=== PATIENT | female | born 1960 | race Hispanic/Latino ===

== ENCOUNTER 2017-03-05 08:51 | Outpatient (CLI) | payer OTHER ==
[2017-03-05] MEDS ORDERED: PROVENTIL IH ONE (09:11)
== END 2017-03-05 08:52 | disposition home or self-care (01) ==
LOC: PF 08:51
PROVIDERS: ATTEND Internal Medicine
DX: E11.9 Type 2 diabetes mellitus without complications (principal); J43.9 Emphysema, unspecified; J42 Unspecified chronic bronchitis; G56.00 Carpal tunnel syndrome, unspecified upper limb; F70 Mild intellectual disabilities; F17.200 Nicotine dependence, unspecified, uncomplicated
CPT/HCPCS: 94060

== ENCOUNTER 2018-01-20 17:06 | Emergency (ER) | payer SELFPAY ==
[2018-01-20 17:53] VITALS: BP 133/69
[2018-01-20] MEDS ORDERED: TYLENOL #3 PO ONE (19:06)
[2018-01-20] MEDS ORDERED: ZOFRAN ODT PO ONE (19:06)
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
== END 2018-01-20 20:11 | disposition home or self-care (01) ==
LOC: ED 17:06
DX: S16.1XXA Strain of muscle, fascia and tendon at neck level, initial encounter (principal); I10 Essential (primary) hypertension; E11.9 Type 2 diabetes mellitus without complications; J44.9 Chronic obstructive pulmonary disease, unspecified; F17.200 Nicotine dependence, unspecified, uncomplicated; Z90.710 Acquired absence of both cervix and uterus; Z79.82 Long term (current) use of aspirin; V89.2XXA Person injured in unspecified motor-vehicle accident, traffic, initial encounter; Y93.89 Activity, other specified; Y92.488 Other paved roadways as the place of occurrence of the external cause; Y99.8 Other external cause status
CPT/HCPCS: 72040; 99283; Q0162

== ENCOUNTER 2019-08-06 04:12 | Inpatient (IN) | payer OTHER, SELFPAY ==
--- NOTE | 2019-08-06 04:55 | XRay Report ---
CHEST 1 VIEW INDICATION / CLINICAL INFORMATION: Chest Pain. COMPARISON: 07/07/2018 FINDINGS: SUPPORT DEVICES: None. HEART / MEDIASTINUM: No significant abnormality. LUNGS / PLEURA: There is mild venous congestion.. No pneumothorax. ADDITIONAL FINDINGS: No significant additional findings. IMPRESSION: 1. There is mild venous congestion Signer Name: Sergei Delatorre MD Signed: 08/06/2019 4:50 AM Workstation Name: [id number]
[2019-08-06 05:34] LABS: Basophils # (Auto) 0.1 K/mm3 (0.0-0.1); Basophils % (Auto) 0.7 % (0.0-1.8); Eosinophils # (Auto) 0.2 K/mm3 (0.0-0.4); Eosinophils % (Auto) 1.2 % (0.0-4.3); Hematocrit 45.3 % (30.3-42.9); Lymphocytes # (Auto) 3.2 K/mm3 (1.2-5.4); Lymphocytes % (Auto) 24.4 % (13.4-35.0); Mean Corpuscular HGB Conc 33 % (30-34); Mean Corpuscular Volume 88 fl (79-97); Monocytes # (Auto) 0.8 K/mm3 (0.0-0.8); Monocytes % (Auto) 6.5 % (0.0-7.3); Platelet Count 315 K/mm3 (140-440); Red Blood Count 5.16 M/mm3 (3.65-5.03)
[2019-08-06 05:58] LABS: BUN/Creatinine Ratio 14; Blood Urea Nitrogen 13 mg/dL (7-17); Calcium 9.9 mg/dL (8.4-10.2); Hemolysis Index 4
[2019-08-06] MEDS ORDERED: FUROSEMIDE 40 MG/4 ML INJ IV ONE (06:30)
[2019-08-06] MEDS ORDERED: FAMOTIDINE 20 MG/2 ML INJ IV ONE (06:30)
[2019-08-06] MEDS ORDERED: ACETAMINOPHEN 325 MG TAB PO ONE (06:30)
--- NOTE | 2019-08-06 06:32 | Emergency Department Report ---
ED General Adult HPI - General Chief complaint: Chest Pain Stated complaint: CHEST PAIN Time Seen by Provider: 08/06/19 06:11 Source: patient, EMS ( EMS documentation not available at time of chart dictation ), RN notes reviewed, old records reviewed Mode of arrival: Stretcher Limitations: Physical Limitation - History of Present Illness Initial comments: During the entire history and physical examination, I am facility technician and escorted by nurse Rhianna Rosado The patient is a 58-year-old female. She is not known to myself previously. She has a history of congestive heart failure, EF of 10 to 15%, does not have a LifeVest, does not have ICD, also has a history of nonischemic cardiomyopathy, pulmonary hypertension, had cardiac catheterization last year, which showed normal coronary arteries. She also has a history of paroxysmal A. fib, and is supposed to be on systemic anticoagulation. Surgical history includes distant history of hysterectomy and cholecystectomy. The patient is not compliant with medications or systemic anticoagulation sec ondary to lack of insurance. She does not have a primary care doctor, nail technician or telecom engineer. She presents to the ER with a complaint of abdominal pain that moved to the chest, and possible syncope. All this started a couple hours ago. She reports onset of nontraumatic bilateral lower quadrant and suprapubic abdominal pain, possibly starting at 3:00 in the morning, that moved up to her subxiphoid region. She describes this pain as sharp, throbbing and aching. It increases with palpation and range of motion. It decreases with rest. She also reports that she went to urinate, and while urinating, she had an episode of loss of consciousness. At the moment, she does not have headache, neck pain, chest pain. She is having abdominal pain. She denies irritative and obstructive uri nary symptoms. She denies bright red blood per rectum and hematemesis. She denies focal extremity weakness and/or numbness. -: Gradual, hour(s) Location: abdomen Radiation: other (chest) Severity scale (0 -10): 10 Quality: other Consistency: other Improves with: other Worsens with: other - Related Data Home Medications Medication Instructions Recorded Confirmed Last Taken metFORMIN 1,000 mg PO BID 08/06/19 08/06/19 Unknown Previous Rx's Medication Instructions Recorded Last Taken Type Apixaban [Eliquis] 2 tab PO Q12HR #26 tablet 07/11/18 Unknown Rx Apixaban [Eliquis] 5 mg PO BID #42 tab.ds.pk 07/11/18 Unknown Rx Aspirin EC [Halfprin EC] 81 mg PO QDAY #30 tablet 07/11/18 Unknown Rx Furosemide [Lasix TAB] 40 mg PO DAILY #30 tablet 07/11/18 Unknown Rx Nicotine [Habitrol] 21 mg TD DAILY #30 patch 07/11/18 Unknown Rx Spironolactone [Aldactone] 25 mg PO QDAY #30 tablet 07/11/18 Unknown Rx carvediloL [Coreg] 12.5 mg PO BID #60 tablet 07/11/18 Unknown Rx glipiZIDE [Glucotrol] 5 mg PO BIDDIAB #60 tablet 07/11/18 Unknown Rx lisinopriL [Zestril TAB] 5 mg PO QDAY #30 tablet 07/11/18 Unknown Rx Allergies Allergy/AdvReac Type Severity Reaction Status Date / Time No Known Allergies Allergy Unverified 01/20/18 17:49 ED Review of Systems ROS: Stated complaint: CHEST PAIN Other details as noted in HPI Constitutional: malaise, weakness. denies: fever Eyes: denies: eye discharge ENT: congestion Respiratory: shortness of breath, wheezing Cardiovascular: chest pain, syncope Gastrointestinal: abdominal pain Genitourinary: denies: dysuria Musculoskeletal: myalgia, other (Chronic right-sided knee pain) Neurological: denies: weakness, numbness, paresthesias Psychiatric: anxiety Hematological/Lymphatic: denies: easy bleeding ED Past Medical Hx - Past Medical History Previous Medical History?: Yes Hx Hypertension: Yes Hx Diabetes: Yes Hx COPD: Yes Additional medical history: EMPHYSEMA - Surgical History Past Surgical History?: Yes Hx Cholecystectomy: Yes Additional Surgical History: HYSTERECTOMY - Social History Smoking Status: Heavy Tobacco Smoker Substance Use Type: None - Medications Home Medications: Home Medications Medication Instructions Recorded Confirmed Last Taken Type Apixaban [Eliquis] 2 tab PO Q12HR #26 tablet 07/11/18 08/06/19 Unknown Rx Apixaban [Eliquis] 5 mg PO BID #42 tab.ds.pk 07/11/18 08/06/19 Unknown Rx Aspirin EC [Halfprin EC] 81 mg PO QDAY #30 tablet 01/25/19 02/20/20 Unknown Rx Furosemide [Lasix TAB] 40 mg PO DAILY #30 tablet 07/11/18 08/06/19 Unknown Rx Nicotine [Habitrol] 21 mg TD DAILY #30 patch 07/11/18 08/06/19 Unknown Rx Spironolactone [Aldactone] 25 mg PO QDAY #30 tablet 07/11/18 08/06/19 Unknown Rx carvediloL [Coreg] 12.5 mg PO BID #60 tablet 07/11/18 08/06/19 Unknown Rx glipiZIDE [Glucotrol] 5 mg PO BIDDIAB #60 tablet 07/11/18 08/06/19 Unknown Rx lisinopriL [Zestril TAB] 5 mg PO QDAY #30 tablet 07/11/18 08/06/19 Unknown Rx metFORMIN 1,000 mg PO BID 08/06/19 08/06/19 Unknown History ED Physical Exam - General Limitations: Physical Limitation General appearance: alert, anxious, in distress, obese - Head Head exam: Present: atraumatic, normocephalic - Eye Eye exam: Present: normal appearance, EOMI, other (Visual acuity intact to fi nger counting and color perception at a close distance). Absent: nystagmus - ENT ENT exam: Present: normal exam, normal orophraynx, mucous membranes moist, norm al external ear exam - Neck Neck exam: Present: normal inspection, full ROM. Absent: tenderness, meningismus - Respiratory Respiratory exam: Present: respiratory distress, rales, rhonchi - Cardiovascular Cardiovascular Exam: Present: normal rhythm, tachycardia, normal heart sounds. Absent: systolic murmur, diastolic murmur, rubs, gallop - GI/Abdominal GI/Abdominal exam: Present: soft, tenderness, other (Suprapubic and bilateral lower quadrant tenderness. There is a positive left-sided Rovsing sign. There is right lower quadrant tenderness with deep palpation. There is no right upper quadrant tenderness). Absent: distended, guarding, rebound, rigid, pulsatile mass - Extremities Exam Extremities exam: Present: normal inspection, full ROM, other (2+ pulses noted in the bilateral upper and lower extremities. There is no palpable cord. negative Homans sign. Muscular compartments are soft. The pelvis is stable.). Absent: calf tenderness - Back Exam Back exam: Present: normal inspection. Absent: tenderness, CVA tenderness (R), CVA tenderness (L), paraspinal tenderness, vertebral tenderness - Neurological Exam Neurological exam: Present: alert, other (There is no facial droop. The tongue is midline. Extraocular movements are intact bilaterally. There is 5 out of 5 strength in bilateral upper and lower extremities. Sensation is intact to light touch bilateral upper and lower extremities. There is no past-pointing. There is no pronator drift. There is normal [id number]. ). Absent: motor sensory deficit - Psychiatric Psychiatric exam: Present: anxious - Skin Skin exam: Present: warm, dry, intact, normal color. Absent: rash ED Course Vital Signs 08/06/19 08/06/19 08/06/19 04:19 04:30 05:31 Temperature 97.8 F Pulse Rate 72 73 90 Respiratory 19 19 19 Rate Blood Pressure 119/36 106/47 132/59 Blood Pressure 106/47 [Right] O2 Sat by Pulse 93 93 99 Oximetry 08/06/19 08/06/19 05:45 06:00 Temperature Pulse Rate 89 89 Respiratory 19 20 Rate Blood Pressure 132/59 134/62 Blood Pressure [Right] O2 Sat by Pulse 96 96 Oximetry - Reevaluation(s) Reevaluation #1: 08/06/19 07:19 Differential diagnosis, including but not limited to: AAA, colitis, renal colic, appendicitis, orthostasis, vagal event, structural cardiac disease, arrhythmia, electrolyte derangement, pneumonia, pulmonary embolism, congestive heart failure, intracranial injury Assessment and plan: 58-year-old female with complex past medical history, noncompliance secondary to insurance issues, presenting with abdominal pain that radiates to the chest, and syncope after urination. Complaints #1, abdominal pain that radiates to the chest obtain CT scan of the abdomen pelvis, urinalysis, and treat her pain. Has equal pulses in the upper and lower extremities, x-ray the chest is reviewed and appreciated, this is very unlikely to be an aortic dissection, however, AAA is on the differential diagnosis. Reassess after the CAT scan has resulted. Complaints #2, chest pain: Has ejection fraction 10 to 15%, does not have ICD, does not have LifeVest, has objective evidence of fluid overload, manifested by physical exam, hypoxia, and ABG showing hypoxemic respiratory failure. Start the patient on supplemental oxygen, start Lasix therapy, obtain CT scan of the chest. Moderate risk for major adverse cardiac event, we will admit to the medical service once initial diagnostics have resulted. Complaints #3, syncope: Likely secondary to multifactorial etiology, including hypoxemic respiratory failure, congestive heart failure, screen for electrolyte derangement, place patient on cardiac tech, replace electrolytes as needed, anticipate cardiology consultation once initial diagnostics have resulted. GCS of 15, cervical spine is cleared through the Nexus and Wilkinson C-spine rule, however, we will obtain CT scan of the brain to assess for intracranial injury. Reevaluation #2: 08/06/19 08:54 no additional episodes of syncope noted. Patient to be admitted to the medical service for high risk chest pain, syncope, first-degree AV block, hypomagn esemia, and acute hypoxemic respiratory failure. Reevaluation #3: 08/06/19 09:25 Dr Mary Bailey to admit ED Medical Decision Making - Lab Data Result diagrams: 08/06/19 05:00 08/06/19 05:00 Vital Signs 08/06/19 08/06/19 08/06/19 04:19 04:30 05:31 Temperature 97.8 F Pulse Rate 72 73 90 Respiratory 19 19 19 Rate Blood Pressure 119/36 106/47 132/59 Blood Pressure 106/47 [Right] O2 Sat by Pulse 93 93 99 Oximetry 08/06/19 08/06/19 05:45 06:00 Temperature Pulse Rate 89 89 Respiratory 19 20 Rate Blood Pressure 132/59 134/62 Blood Pressure [Right] O2 Sat by Pulse 96 96 Oximetry Lab Results 08/06/19 08/06/19 Range/Units 05:00 05:00 WBC 13.0 H (4.5-11.0) K/mm3 RBC 5.16 H (3.65-5.03) M/mm3 Hgb 15.0 H (10.1-14.3) gm/dl Hct 45.3 H (30.3-42.9) % MCV 88 (79-97) fl MCH 29 (28-32) pg MCHC 33 (30-34) % RDW 14.0 (13.2-15.2) % Plt Count 315 (140-440) K/mm3 Lymph % (Auto) 24.4 (13.4-35.0) % [place] % (Auto) 6.5 (0.0-7.3) % Eos % (Auto) 1.2 (0.0-4.3) % Baso % (Auto) 0.7 (0.0-1.8) % Lymph # 3.2 (1.2-5.4) K/mm3 [place] # 0.8 (0.0-0.8) K/mm3 Eos # 0.2 (0.0-0.4) K/mm3 Baso # 0.1 (0.0-0.1) K/mm3 Seg Neutrophils % 67.2 (40.0-70.0) % Seg Neutrophils # 8.7 H (1.8-7.7) K/mm3 Sodium 143 (137-145) mmol/L Potassium 4.3 (3.6-5.0) mmol/L Chloride 97.9 L (98-107) mmol/L Carbon Dioxide 29 (22-30) mmol/L Anion Gap 20 mmol/L BUN 13 (7-17) mg/dL Creatinine 0.9 (0.7-1.2) mg/dL Estimated GFR > 60 ml/min BUN/Creatinine Ratio 14 % Glucose 218 H (65-100) mg/dL Calcium 9.9 (8.4-10.2) mg/dL Troponin T < 0.010 (0.00-0.029) ng/mL Vital Signs 08/06/19 08/06/19 08/06/19 04:19 04:30 05:31 Temperature 97.8 F Pulse Rate 72 73 90 Respiratory 19 19 19 Rate Blood Pressure 119/36 106/47 132/59 Blood Pressure 106/47 [Right] O2 Sat by Pulse 93 93 99 Oximetry 08/06/19 08/06/19 05:45 06:00 Temperature Pulse Rate 89 89 Respiratory 19 20 Rate Blood Pressure 132/59 134/62 Blood Pressure [Right] O2 Sat by Pulse 96 96 Oximetry Lab Results 08/06/19 08/06/19 08/06/19 Range/Units 05:00 05:00 06:45 WBC 13.0 H (4.5-11.0) K/mm3 RBC 5.16 H (3.65-5.03) M/mm3 Hgb 15.0 H (10.1-14.3) gm/dl Hct 45.3 H (30.3-42.9) % MCV 88 (79-97) fl MCH 29 (28-32) pg MCHC 33 (30-34) % RDW 14.0 (13.2-15.2) % Plt Count 315 (140-440) K/mm3 Lymph % (Auto) 24.4 (13.4-35.0) % [place] % (Auto) 6.5 (0.0-7.3) % Eos % (Auto) 1.2 (0.0-4.3) % Baso % (Auto) 0.7 (0.0-1.8) % Lymph # 3.2 (1.2-5.4) K/mm3 [place] # 0.8 (0.0-0.8) K/mm3 Eos # 0.2 (0.0-0.4) K/mm3 Baso # 0.1 (0.0-0.1) K/mm3 Seg Neutrophils % 67.2 (40.0-70.0) % Seg Neutrophils # 8.7 H (1.8-7.7) K/mm3 PT (12.2-14.9) Sec. INR (0.87-1.13) APTT (24.2-36.6) Sec. D-Dimer (0-234) ng/mlDDU ABG pH 7.326 L (7.350-7.450) pH Units ABG pCO2 50.7 mm Hg ABG pO2 60.1 L (80.0-90.0) mm Hg ABG HCO3 25.9 (20.0-26.0) mmol/L ABG O2 Saturation 91.4 L (95.0-99.0) % ABG O2 Content 17.7 (0.0-44) ABG Base Excess -0.8 (-2.0-3.0) mmol/L ABG Hemoglobin 14.8 (12.0-16.0) gm/dl ABG Carboxyhemoglobin 6.5 H (0.0-5.0) % ABG Methemoglobin 0.5 (0.0-1.5) % Oxyhemoglobin 85.0 L (95.0-99.0) % FiO2 21 % Sodium 143 (137-145) mmol/L Potassium 4.3 (3.6-5.0) mmol/L Chloride 97.9 L (98-107) mmol/L Carbon Dioxide 29 (22-30) mmol/L Anion Gap 20 mmol/L BUN 13 (7-17) mg/dL Creatinine 0.9 (0.7-1.2) mg/dL Estimated GFR > 60 ml/min BUN/Creatinine Ratio 14 % Glucose 218 H (65-100) mg/dL Calcium 9.9 (8.4-10.2) mg/dL Magnesium (1.7-2.3) mg/dL Troponin T < 0.010 (0.00-0.029) ng/mL NT-Pro-B Natriuret Pep (0-900) pg/mL TSH (0.270-4.200) mlU/mL Urine Color (Yellow) Urine Turbidity (Clear) Urine pH (5.0-7.0) Ur Specific [place] (1.003-1.030) Urine Protein (Negative) mg/dL Urine Glucose (UA) (Negative) mg/dL Urine Ketones (Negative) mg/dL Urine Blood (Negative) Urine Nitrite (Negative) Urine Bilirubin (Negative) Urine Urobilinogen (<2.0) mg/dL Ur Leukocyte Esterase (Negative) Urine WBC (Auto) (0.0-6.0) /HPF Urine RBC (Auto) (0.0-6.0) /HPF U Epithel Cells (Auto) (0-13.0) /HPF Hyaline Casts /LPF Urine Mucus /HPF Salicylates (2.8-20.0) mg/dL Acetaminophen (10.0-30.0) ug/mL Plasma/Serum Alcohol (0-0.07) % 08/06/19 08/06/19 08/06/19 Range/Units 06:53 06:53 06:53 WBC (4.5-11.0) K/mm3 RBC (3.65-5.03) M/mm3 Hgb (10.1-14.3) gm/dl Hct (30.3-42.9) % MCV (79-97) fl MCH (28-32) pg MCHC (30-34) % RDW (13.2-15.2) % Plt Count (140-440) K/mm3 Lymph % (Auto) (13.4-35.0) % [place] % (Auto) (0.0-7.3) % Eos % (Auto) (0.0-4.3) % Baso % (Auto) (0.0-1.8) % Lymph # (1.2-5.4) K/mm3 [place] # (0.0-0.8) K/mm3 Eos # (0.0-0.4) K/mm3 Baso # (0.0-0.1) K/mm3 Seg Neutrophils % (40.0-70.0) % Seg Neutrophils # (1.8-7.7) K/mm3 PT 13.5 (12.2-14.9) Sec. INR 1.02 (0.87-1.13) APTT 28.5 (24.2-36.6) Sec. D-Dimer < 135.00 (0-234) ng/mlDDU ABG pH (7.350-7.450) pH Units ABG pCO2 mm Hg ABG pO2 (80.0-90.0) mm Hg ABG HCO3 (20.0-26.0) mmol/L ABG O2 Saturation (95.0-99.0) % ABG O2 Content (0.0-44) ABG Base Excess (-2.0-3.0) mmol/L ABG Hemoglobin (12.0-16.0) gm/dl ABG Carboxyhemoglobin (0.0-5.0) % ABG Methemoglobin (0.0-1.5) % Oxyhemoglobin (95.0-99.0) % FiO2 % Sodium (137-145) mmol/L Potassium (3.6-5.0) mmol/L Chloride (98-107) mmol/L Carbon Dioxide (22-30) mmol/L Anion Gap mmol/L BUN (7-17) mg/dL Creatinine (0.7-1.2) mg/dL Estimated GFR ml/min BUN/Creatinine Ratio % Glucose (65-100) mg/dL Calcium (8.4-10.2) mg/dL Magnesium 1.60 L (1.7-2.3) mg/dL Troponin T (0.00-0.029) ng/mL NT-Pro-B Natriuret Pep 427.0 (0-900) pg/mL TSH 4.840 H (0.270-4.200) mlU/mL Urine Color (Yellow) Urine Turbidity (Clear) Urine pH (5.0-7.0) Ur Specific [place] (1.003-1.030) Urine Protein (Negative) mg/dL Urine Glucose (UA) (Negative) mg/dL Urine Ketones (Negative) mg/dL Urine Blood (Negative) Urine Nitrite (Negative) Urine Bilirubin (Negative) Urine Urobilinogen (<2.0) mg/dL Ur Leukocyte Esterase (Negative) Urine WBC (Auto) (0.0-6.0) /HPF Urine RBC (Auto) (0.0-6.0) /HPF U Epithel Cells (Auto) (0-13.0) /HPF Hyaline Casts /LPF Urine Mucus /HPF Salicylates (2.8-20.0) mg/dL Acetaminophen (10.0-30.0) ug/mL Plasma/Serum Alcohol (0-0.07) % 08/06/19 08/06/19 08/06/19 Range/Units 06:53 06:53 06:53 WBC (4.5-11.0) K/mm3 RBC (3.65-5.03) M/mm3 Hgb (10.1-14.3) gm/dl Hct (30.3-42.9) % MCV (79-97) fl MCH (28-32) pg MCHC (30-34) % RDW (13.2-15.2) % Plt Count (140-440) K/mm3 Lymph % (Auto) (13.4-35.0) % [place] % (Auto) (0.0-7.3) % Eos % (Auto) (0.0-4.3) % Baso % (Auto) (0.0-1.8) % Lymph # (1.2-5.4) K/mm3 [place] # (0.0-0.8) K/mm3 Eos # (0.0-0.4) K/mm3 Baso # (0.0-0.1) K/mm3 Seg Neutrophils % (40.0-70.0) % Seg Neutrophils # (1.8-7.7) K/mm3 PT (12.2-14.9) Sec. INR (0.87-1.13) APTT (24.2-36.6) Sec. D-Dimer (0-234) ng/mlDDU ABG pH (7.350-7.450) pH Units ABG pCO2 mm Hg ABG pO2 (80.0-90.0) mm Hg ABG HCO3 (20.0-26.0) mmol/L ABG O2 Saturation (95.0-99.0) % ABG O2 Content (0.0-44) ABG Base Excess (-2.0-3.0) mmol/L ABG Hemoglobin (12.0-16.0) gm/dl ABG Carboxyhemoglobin (0.0-5.0) % ABG Methemoglobin (0.0-1.5) % Oxyhemoglobin (95.0-99.0) % FiO2 % Sodium (137-145) mmol/L Potassium (3.6-5.0) mmol/L Chloride (98-107) mmol/L Carbon Dioxide (22-30) mmol/L Anion Gap mmol/L BUN (7-17) mg/dL Creatinine (0.7-1.2) mg/dL Estimated GFR ml/min BUN/Creatinine Ratio % Glucose (65-100) mg/dL Calcium (8.4-10.2) mg/dL Magnesium (1.7-2.3) mg/dL Troponin T (0.00-0.029) ng/mL NT-Pro-B Natriuret Pep (0-900) pg/mL TSH (0.270-4.200) mlU/mL Urine Color (Yellow) Urine Turbidity (Clear) Urine pH (5.0-7.0) Ur Specific [place] (1.003-1.030) Urine Protein (Negative) mg/dL Urine Glucose (UA) (Negative) mg/dL Urine Ketones (Negative) mg/dL Urine Blood (Negative) Urine Nitrite (Negative) Urine Bilirubin (Negative) Urine Urobilinogen (<2.0) mg/dL Ur Leukocyte Esterase (Negative) Urine WBC (Auto) (0.0-6.0) /HPF Urine RBC (Auto) (0.0-6.0) /HPF U Epithel Cells (Auto) (0-13.0) /HPF Hyaline Casts /LPF Urine Mucus /HPF Salicylates 0.5 L (2.8-20.0) mg/dL Acetaminophen < 5.0 L (10.0-30.0) ug/mL Plasma/Serum Alcohol < 0.01 (0-0.07) % 08/06/19 Range/Units Unknown WBC (4.5-11.0) K/mm3 RBC (3.65-5.03) M/mm3 Hgb (10.1-14.3) gm/dl Hct (30.3-42.9) % MCV (79-97) fl MCH (28-32) pg MCHC (30-34) % RDW (13.2-15.2) % Plt Count (140-440) K/mm3 Lymph % (Auto) (13.4-35.0) % [place] % (Auto) (0.0-7.3) % Eos % (Auto) (0.0-4.3) % Baso % (Auto) (0.0-1.8) % Lymph # (1.2-5.4) K/mm3 [place] # (0.0-0.8) K/mm3 Eos # (0.0-0.4) K/mm3 Baso # (0.0-0.1) K/mm3 Seg Neutrophils % (40.0-70.0) % Seg Neutrophils # (1.8-7.7) K/mm3 PT (12.2-14.9) Sec. INR (0.87-1.13) APTT (24.2-36.6) Sec. D-Dimer (0-234) ng/mlDDU ABG pH (7.350-7.450) pH Units ABG pCO2 mm Hg ABG pO2 (80.0-90.0) mm Hg ABG HCO3 (20.0-26.0) mmol/L ABG O2 Saturation (95.0-99.0) % ABG O2 Content (0.0-44) ABG Base Excess (-2.0-3.0) mmol/L ABG Hemoglobin (12.0-16.0) gm/dl ABG Carboxyhemoglobin (0.0-5.0) % ABG Methemoglobin (0.0-1.5) % Oxyhemoglobin (95.0-99.0) % FiO2 % Sodium (137-145) mmol/L Potassium (3.6-5.0) mmol/L Chloride (98-107) mmol/L Carbon Dioxide (22-30) mmol/L Anion Gap mmol/L BUN (7-17) mg/dL Creatinine (0.7-1.2) mg/dL Estimated GFR ml/min BUN/Creatinine Ratio % Glucose (65-100) mg/dL Calcium (8.4-10.2) mg/dL Magnesium (1.7-2.3) mg/dL Troponin T (0.00-0.029) ng/mL NT-Pro-B Natriuret Pep (0-900) pg/mL TSH (0.270-4.200) mlU/mL Urine Color Yellow (Yellow) Urine Turbidity Clear (Clear) Urine pH 5.0 (5.0-7.0) Ur Specific [place] 1.017 (1.003-1.030) Urine Protein 30 mg/dl (Negative) mg/dL Urine Glucose (UA) Neg (Negative) mg/dL Urine Ketones Neg (Negative) mg/dL Urine Blood Neg (Negative) Urine Nitrite Neg (Negative) Urine Bilirubin Neg (Negative) Urine Urobilinogen < 2.0 (<2.0) mg/dL Ur Leukocyte Esterase Neg (Negative) Urine WBC (Auto) 1.0 (0.0-6.0) /HPF Urine RBC (Auto) 2.0 (0.0-6.0) /HPF U Epithel Cells (Auto) 2.0 (0-13.0) /HPF Hyaline Casts 4 /LPF Urine Mucus Few /HPF Salicylates (2.8-20.0) mg/dL Acetaminophen (10.0-30.0) ug/mL Plasma/Serum Alcohol (0-0.07) % - EKG Data -: EKG Interpreted by Ct EKG shows normal: sinus rhythm Rate: normal - EKG Data 08/06/19 07:22 Sinus rhythm, 75 bpm, first-degree AV block, QTC is prolonged, there is a borderline rightward axis deviation, there are PVCs. There is an interventricular conduction delay. The EKG is markedly abnormal. Nonspecific changes when compared to prior, including worsened first-degree AV block, more pronounced interventricular conduction delay, new onset PVCs. - Radiology Data Radiology results: report reviewed, image reviewed Print Report Referring Physician: ED DOC Patient Name: DEXTER YOST Date of : 1960 Sex: Female Report Date: 2019-08-06 Report Status: Finalized Findings [facility] [address] [place] [address] XRa y Report Signed Patient: DEXTER YOST MR#: [id number] : 1960 Acct:[id number] Age/Sex: 58 / F ADM Date: 08/06/19 Loc: ED Attending Dr: Ordering Physician: ED MD NATE Date of Service: 08/06/19 Procedure(s): XR chest 1V ap Accession Number(s): [id number] cc: ED DOCMD Fluoro Time In Minutes: CHEST 1 VIEW INDICATION / CLINICAL INFORMATION: Chest Pain. COMPARISON: 07/07/2018 FINDINGS: SUPPORT DEVICES: None. HEART / MEDIASTINUM: No significant abnormality. LUNGS / PLEURA: There is mild venous congestion.. No pneumothorax. ADDITIONAL FINDINGS: No significant additional findings. IMPRESSION: 1. There is mild venous congestion Signer Name: Sergei Delatorre MD Signed: 08/06/2019 4:50 AM Workstation Name: [id number] Transcribed By: SS Dictated By: Sergei Delatorre MD Electronically Authenticated By: Sergei Delatorre MD Signed Date/Time: 08/06/19449 DD/ 9 TD/TT: Noncontrast CT scan of the brain negative for acute disease. CT scan of the abdomen pelvis is negative for acute disease Critical Care Time: Yes Critical care time in (mins) excluding proc time.: 35 Critical care attestation.: If time is entered above; I have spent that time in minutes in the direct care of this critically ill patient, excluding procedure time. ED Disposition Clinical Impression: Acute respiratory failure with hypoxemia, First degree AV block, Acute abdominal pain, Acute chest pain, Syncope, Hypomagnesemia Disposition: 09 OP ADMIT IP TO THIS HOSP Is pt being admited?: Yes Does the pt Need Aspirin: Yes Condition: Stable Instructions: Chest Pain (ED), Syncope (ED) Referrals: PRIMARY CARE, [Primary Care Provider] - 3-5 Days
[2019-08-06 07:05] LABS: ABG Base Excess -0.8 mmol/L (-2.0-3.0); ABG HCO3 25.9 mmol/L (20.0-26.0); ABG Methemoglobin 0.5 % (0.0-1.5); ABG Oxygen Saturation 91.4 % (95.0-99.0); ABG PCO2 50.7 mm Hg; ABG PH 7.326 pH Units (7.350-7.450); ABG PO2 60.1 mm Hg (80.0-90.0)
[2019-08-06 07:15] LABS: INR 1.02 (0.87-1.13)
[2019-08-06 07:16] LABS: Partial Thromboplastin Time 28.5 Sec. (24.2-36.6)
[2019-08-06] MEDS ORDERED: MAGNESIUM SULFATE 2 GM/50 ML BAG IV ONE (07:23)
[2019-08-06 07:53] LABS: Bilirubin,Urine NEG (Negative); Blood,Urine NEG (Negative); Color,Urine Yellow (Yellow); Hyaline Casts,Urine 4 /LPF; Mucus,Urine FEW /HPF; Urobilinogen,Urine < 2.0 mg/dL (<2.0)
--- NOTE | 2019-08-06 08:36 | Cat Scan Report ---
CT HEAD WITHOUT CONTRAST INDICATION / CLINICAL INFORMATION: syncope uncertain if head trauma. TECHNIQUE: Axial imaging performed from the skull apex through the skull base without the use of cont rast. Sagittal and coronal reformatted images. All CT scans at this location are performed using CT dose reduction for ALARA by means of automated exposure control. COMPARISON: None available. FINDINGS: CEREBRAL PARENCHYMA: No significant abnormality. No acute territorial infarct. HEMORRHAGE: None. EXTRA-AXIAL SPACES: Normal in size and morphology for the patient's age. VENTRICULAR SYSTEM: Normal in size and morphology for the patient's age. MIDLINE SHIFT OR HERNIATION: None. CEREBELLUM / BRAINSTEM: No significant abnormality. CALVARIUM: No significant abnormality. ORBITS: Normal as visualized. PARANASAL SINUSES / MASTOID AIR CELLS: Normal as visualized. SOFT TISSUES of HEAD: No significant abnormality. ADDITIONAL FINDINGS: None. IMPRESSION: Normal CT head Signer Name: Manjit Tierney Jr, MD Signed: 08/06/2019 8:32 AM Workstation Name: [id number]
--- NOTE | 2019-08-06 08:47 | Cat Scan Report ---
CT ABDOMEN AND PELVIS WITH CONTRAST HISTORY: Abdominal pain radiating to the chest. COMPARISON: No available relevant comparison imaging . TECHNIQUE: Routine abdominal and pelvic CT exam performed following intravenous contrast administrat ion.. All CT scans at this location are performed using CT dose reduction for ALARA by means of autom ated exposure control. FINDINGS: CT ABDOMEN: Lung Bases: No significant abnormality. Liver: No significant abnormality. Biliary: Normal bile ducts status post cholecystectomy. Spleen: No significant abnormality. Unenlarged. Pancreas: No significant abnormality. Adrenals: No significant abnormality. Kidneys: No significant abnormality. The renal collecting systems and ureters are nondilated. No urin tera calculus. Lymphatics: No lymphadenopathy. Vasculature: The aorta and iliac arteries are relatively small and heavily calcified. Bowel/Peritoneum: Nonobstructive bowel pattern. Diverticulosis without mesocolonic fat stranding. No free air. No free fluid. Normal appendix. Additional Findings: A 1.3 cm wide supraumbilical abdominal wall defect with a small fat-containing h ernia. No inflammatory stranding within the herniated fat. No bowel extends into the hernia. The defe ct is approximately 1.5 cm superior to the umbilicus. CT PELVIC: : Status post hysterectomy and right salpingo-oophorectomy. Normal left ovary. No adnexal mass or f ree fluid. Lymphatics: No lymphadenopathy. Osseous Structures: No aggressive appearing osseous lesions. Additional Findings: None IMPRESSION: 1. A small fat-containing supraumbilical hernia. 2. Diverticulosis involving the transverse and descending colon but no signs of diverticulitis. 3. Status post cholecystectomy. 4. Status post hysterectomy and right salpingo-oophorectomy. Signer Name: Chaparro Saenz MD Signed: 08/06/2019 8:43 AM Workstation Name: [id number]
[2019-08-06] MEDS ORDERED: ASPIRIN 81 MG TAB CHEW PO ONE (08:56)
[2019-08-06] MEDS ORDERED: ASPIRIN 325 MG TAB ONE (10:10)
--- NOTE | 2019-08-06 11:17 | History and Physical Report ---
History of Present Illness Date of examination: 08/06/19 Date of admission: 08/06/19 09:47 History of present illness: The patient is a 58-year-old female has a history of congestive heart failure, EF of 10 to 15%, does not have a LifeVest, does not have ICD, also has a history of nonischemic cardiomyopathy, pulmonary hypertension, had cardiac catheterization last year, which showed normal coronary arteries. She also has a history of paroxysmal A. fib, and is supposed to be on systemic a nticoagulation. Surgical history includes distant history of hysterectomy and cholecystectomy. The patient is not compliant with medications or systemic anticoagulation secondary to lack of insurance. 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 She presents to the ER with a complaint of abdominal pain that moved to the chest, and possible syncope. All this started a couple hours ago. She reports onset of nontraumatic bilateral lower quadrant and suprapubic abdominal pain, possibly starting at 3:00 in the morning, that moved up to her subxiphoid region. She describes this pain as sharp, throbbing and aching. It increases with palpation and range of motion. It decreases with rest. She also reports that she went to urinate, and while urinating, she had an episode of loss of consciousness. At the moment, she does not have headache, neck pain, chest pain. She is having abdominal pain. She denies irritative and obstructive urinary symptoms. She denies bright red blood per rectum and hematemesis. She denies focal extremity weakness and/or numbness. Past History Past Medical History: heart failure, hypertension, hyperlipidemia, other (atrial fib) Past Surgical History: cholecystectomy, hysterectomy, Other (Tubal ligation) Social history: smoking Family history: hypertension Medications and Allergies Allergies Allergy/AdvReac Type Severity Reaction Status Date / Time No Known Allergies Allergy Unverified 01/20/18 17:49 Home Medications Medication Instructions Recorded Confirmed Last Taken Type Apixaban [Eliquis] 2 tab PO Q12HR #26 tablet 07/11/18 08/06/19 Unknown Rx Apixaban [Eliquis] 5 mg PO BID #42 tab.ds.pk 07/11/18 08/06/19 Unknown Rx Aspirin EC [Halfprin EC] 81 mg PO QDAY #30 tablet 07/11/18 08/06/19 Unknown Rx Furosemide [Lasix TAB] 40 mg PO DAILY #30 tablet 07/11/18 08/06/19 Unknown Rx Nicotine [Habitrol] 21 mg TD DAILY #30 patch 07/11/18 08/06/19 Unknown Rx Spironolactone [Aldactone] 25 mg PO QDAY #30 tablet 07/11/18 08/06/19 Unknown Rx carvediloL [Coreg] 12.5 mg PO BID #60 tablet 07/11/18 08/06/19 Unknown Rx glipiZIDE [Glucotrol] 5 mg PO BIDDIAB #60 tablet 07/11/18 08/06/19 Unknown Rx lisinopriL [Zestril TAB] 5 mg PO QDAY #30 tablet 07/11/18 08/06/19 Unknown Rx metFORMIN 1,000 mg PO BID 08/06/19 08/06/19 Unknown History Exam - Physical Exam Narrative exam: GENERAL: well-developed and well-nourished lying on bed appeared to be in no discomfort. HEENT: Normocephalic. Atraumatic. No conjunctival congestion or icterus. Patient has moist mucous membranes. NECK: Supple. Trachea midline. CHEST/LUNGS: Clear to auscultated bilaterally, breathing nonlabored. No wheezes crackles or rhonchi. HEART/CARDIOVASCULAR: Regular in rate and rhythm. S1 and S2 positive. ABDOMEN: Abdomen is soft, nontender. Patient has normal bowel sounds. SKIN: There is no rash. Warm and dry. NEURO: No focal motor deficit. Follows command. MUSCULOSKELETAL: No joint effusion or tenderness. EXTRIMITY: No edema, no cyanosis or clubbing. PSYCH: Cooperative. - Constitutional Vitals: Temp Pulse Resp BP Pulse Ox 97.8 F 89 20 134/62 96 08/06/19 04:19 08/06/19 06:00 08/06/19 06:00 08/06/19 06:00 08/06/19 06:00 Results - Labs CBC & Chem 7: 08/06/19 05:00 08/06/19 05:00 Labs: Abnormal lab results 08/06/19 08/06/19 08/06/19 Range/Units 05:00 05:00 06:45 WBC 13.0 H (4.5-11.0) K/mm3 RBC 5.16 H (3.65-5.03) M/mm3 Hgb 15.0 H (10.1-14.3) gm/dl Hct 45.3 H (30.3-42.9) % Seg Neutrophils # 8.7 H (1.8-7.7) K/mm3 ABG pH 7.326 L (7.350-7.450) pH Units ABG pO2 60.1 L (80.0-90.0) mm Hg ABG O2 Saturation 91.4 L (95.0-99.0) % ABG Carboxyhemoglobin 6.5 H (0.0-5.0) % Oxyhemoglobin 85.0 L (95.0-99.0) % Chloride 97.9 L (98-107) mmol/L Glucose 218 H (65-100) mg/dL Magnesium (1.7-2.3) mg/dL TSH (0.270-4.200) mlU/mL Salicylates (2.8-20.0) mg/dL Acetaminophen (10.0-30.0) ug/mL 08/06/19 08/06/19 08/06/19 Range/Units 06:53 06:53 06:53 WBC (4.5-11.0) K/mm3 RBC (3.65-5.03) M/mm3 Hgb (10.1-14.3) gm/dl Hct (30.3-42.9) % Seg Neutrophils # (1.8-7.7) K/mm3 ABG pH (7.350-7.450) pH Units ABG pO2 (80.0-90.0) mm Hg ABG O2 Saturation (95.0-99.0) % ABG Carboxyhemoglobin (0.0-5.0) % Oxyhemoglobin (95.0-99.0) % Chloride (98-107) mmol/L Glucose (65-100) mg/dL Magnesium 1.60 L (1.7-2.3) mg/dL TSH 4.840 H (0.270-4.200) mlU/mL Salicylates 0.5 L (2.8-20.0) mg/dL Acetaminophen (10.0-30.0) ug/mL 08/06/19 Range/Units 06:53 WBC (4.5-11.0) K/mm3 RBC (3.65-5.03) M/mm3 Hgb (10.1-14.3) gm/dl Hct (30.3-42.9) % Seg Neutrophils # (1.8-7.7) K/mm3 ABG pH (7.350-7.450) pH Units ABG pO2 (80.0-90.0) mm Hg ABG O2 Saturation (95.0-99.0) % ABG Carboxyhemoglobin (0.0-5.0) % Oxyhemoglobin (95.0-99.0) % Chloride (98-107) mmol/L Glucose (65-100) mg/dL Magnesium (1.7-2.3) mg/dL TSH (0.270-4.200) mlU/mL Salicylates (2.8-20.0) mg/dL Acetaminophen < 5.0 L (10.0-30.0) ug/mL Assessment and Plan Syncope - likely vasovagal Epigastric/abdominal pain - CT abdomen/pelvis ordered [id number]% - s/p recent Heart cath: Normal coronaries, severe dilated nonischemic cardiomyopathy EF 10-15% - cont anti-failure medications, input output monitoring, salt and fluid restriction HTN, stable DM type 2, metformin and SSI Paroxysmal A. fib with rapid ventricular rate; - Cardiology recommended full dose anticoagulation during prior admission with eliquis, - provide DVT Px with eliquis
[2019-08-06] MEDS: APIXABAN 5 MG TAB PO SCH ×2 (17:21→21:45)
[2019-08-06] MEDS: NICOTINE 21 MG/24 HR PATCH TD SCH (17:22)
[2019-08-06] MEDS: glipiZIDE 5 MG TAB PO SCH (17:22)
[2019-08-06] MEDS: metFORMIN 500 MG TAB PO SCH (17:22)
[2019-08-06] MEDS: INSULIN REGULAR, HUMAN 100 UNITS/1 ML SUB-Q SCH ×2 (17:30→23:04)
[2019-08-06] MEDS: carvediloL 12.5 MG TAB PO SCH (21:45)
[2019-08-06] MEDS ORDERED: PHENOL 1.4% 177 ML BOTTLE MM PRN (21:52)
[2019-08-06] MEDS ORDERED: NON-FORMULARY EACH (Apixaban [Eliquis Starter Pack] 5 MG) PO SCH (22:00)
[2019-08-06] MEDS ORDERED: NON-FORMULARY EACH (Metformin 1,000 MG) PO SCH (22:00)
[2019-08-07] MEDS: INSULIN REGULAR, HUMAN 100 UNITS/1 ML SUB-Q SCH ×4 (08:00→21:45)
[2019-08-07] MEDS: ASPIRIN EC 81 MG TAB PO SCH (09:39)
[2019-08-07] MEDS: metFORMIN 500 MG TAB PO SCH ×2 (09:39→17:10)
[2019-08-07] MEDS: glipiZIDE 5 MG TAB PO SCH ×2 (09:39→17:11)
[2019-08-07] MEDS: APIXABAN 5 MG TAB PO SCH ×2 (09:39→21:44)
[2019-08-07] MEDS: NICOTINE 21 MG/24 HR PATCH TD SCH (09:40)
[2019-08-07] MEDS: FUROSEMIDE 40 MG TAB PO SCH (09:40)
[2019-08-07] MEDS: LISINOPRIL 5 MG TAB PO SCH (09:42)
[2019-08-07] MEDS: carvediloL 12.5 MG TAB PO SCH ×2 (09:42→21:44)
[2019-08-07] MEDS: SPIRONOLACTONE 25 MG TAB PO SCH (09:42)
--- NOTE | 2019-08-07 12:14 | Consultation ---
History of Present Illness Consult date: 08/07/19 Consult reason: congestive heart failure History of present illness: This is a 58-year old woman with a history of nonischemic cardiomyopathy. A year ago a a right and left cardiac catheterization revealed severe pulmonary hypertension, PASP 70 mmHg. There were normal coronaries but a decreased left ventricular ejection fraction 10-15%. A follow up echocardiogram 6 months ago reports an left ventricular ejection fraction 35-40%. Patient also has a history of paroxysmal atrial fibrillation, on eliquis for oral anticoagulation. Co-morbidities includes COPD on home oxygen, hypertension, diabetes and tobacco abuse. Patient is admitted with syncope. Patient reports she woke up on the floor after getting up from the toilet. Patient reports when she came to herself, she noted abdominal pain and chest pain. She denies unusual shortness of breath and palpitations. EMS was called and she was brought in for evaluation. Head CT scan reports no acute intracranial abnormality. A cardiac consultation has been requested for CHF evaluation. There is no lower extremity edema. A chest x-ray done reports mild interstitial edema. Patient reports she loss her insurance and has been off of her medications for several weeks. Patient also admits to noncompliance with dietary indiscretions. 12 lead ECG is sinus rhythm with nonspecific Twave changes. Past History Past Medical History: heart failure, hypertension, hyperlipidemia, other (atrial fib) Past Surgical History: cholecystectomy, hysterectomy, Other (Tubal ligation) Social history: smoking Family history: hypertension Medications and Allergies Allergies Allergy/AdvReac Type Severity Reaction Status Date / Time No Known Allergies Allergy Unverified 01/20/18 17:49 Home Medications Medication Instructions Recorded Confirmed Last Taken Type Apixaban [Eliquis] 2 tab PO Q12HR #26 tablet 07/11/18 08/06/19 Unknown Rx Apixaban [Eliquis] 5 mg PO BID #42 tab.ds.pk 07/11/18 08/06/19 Unknown Rx Aspirin EC [Halfprin EC] 81 mg PO QDAY #30 tablet 07/11/18 08/06/19 Unknown Rx Furosemide [Lasix TAB] 40 mg PO DAILY #30 tablet 07/11/18 08/06/19 Unknown Rx Nicotine [Habitrol] 21 mg TD DAILY #30 patch 07/11/18 08/06/19 Unknown Rx Spironolactone [Aldactone] 25 mg PO QDAY #30 tablet 07/11/18 08/06/19 Unknown Rx carvediloL [Coreg] 12.5 mg PO BID #60 tablet 07/11/18 08/06/19 Unknown Rx glipiZIDE [Glucotrol] 5 mg PO BIDDIAB #60 tablet 07/11/18 08/06/19 Unknown Rx lisinopriL [Zestril TAB] 5 mg PO QDAY #30 tablet 07/11/18 08/06/19 Unknown Rx metFORMIN 1,000 mg PO BID 08/06/19 08/06/19 Unknown History Active Meds: Active Medications Apixaban (Eliquis) 5 mg PO Q12HR [facility] Last Admin: 08/07/19 09:39 Dose: 5 mg Documented by: Aspirin (Halfprin Ec) 81 mg PO QDAY [facility] Last Admin: 08/07/19 09:39 Dose: 81 mg Documented by: Carvedilol (Coreg) 12.5 mg PO BID [facility] Last Admin: 08/07/19 09:42 Dose: 12.5 mg Documented by: Furosemide (Lasix) 40 mg PO DAILY [facility] Last Admin: 08/07/19 09:40 Dose: 40 mg Documented by: Glipizide (Glucotrol) 5 mg PO BIDDIAB [facility] Last Admin: 08/07/19 09:39 Dose: 5 mg Documented by: Insulin Human Regular (Humulin R) 0 units SUB-Q [facility]; Protocol Last Admin: 08/07/19 08:00 Dose: Not Given Documented by: Lisinopril (Zestril) 5 mg PO QDAY [facility] Last Admin: 08/07/19 09:42 Dose: 5 mg Documented by: Metformin HCl (Glucophage) 1,000 mg PO BIDDIAB [facility] Last Admin: 08/07/19 09:39 Dose: 1,000 mg Documented by: Nicotine (Habitrol) 21 mg TD DAILY [facility] Last Admin: 08/07/19 09:40 Dose: 21 mg Documented by: Phenol (Chloraseptic) 1 spray MM PRN PRN PRN Reason: Sore Throat Last Admin: 08/06/19 23:03 Dose: 1 spray Documented by: Spironolactone (Aldactone) 25 mg PO QDAY [facility] Last Admin: 08/07/19 09:42 Dose: 25 mg Documented by: Physical Examination Vital Signs Temp Pulse Resp BP Pulse Ox 97.8 F 72 18 106/47 92 08/06/19 04:19 08/06/19 04:19 08/06/19 04:19 08/06/19 04:19 08/06/19 04:19 General appearance: no acute distress HEENT: Positive: PERRL Neck: Positive: neck supple Cardiac: Positive: Reg Rate and Rhythm Lungs: Positive: Decreased Breath Sounds, Wheezes Neuro: Positive: Grossly Intact Extremities: Absent: edema Results 08/06/19 05:00 08/06/19 05:00 Assessment and Plan Syncope Acute systolic heart failure s/p to noncompliance with her medications Hx of Nonischemic cardiomyopathy EF 35-40% by an echo 12/2018 C 06/2018: normal coronaries, EF 10-15% Paroxysmal Afib on telemetry currently in sinus rhythm on eliquis for oral anticoagulation Pulmonary hypertension Hypertension Diabetes Hx of COPD Tobacco abuse Recommendations: Advised sodium/fluid restriction. Resume medical therapy for nonischemic cardiomyopathy and paroxysmal atrial fibrillation.
--- NOTE | 2019-08-07 15:51 | Progress Note ---
Assessment and Plan Syncope - likely vasovagal, cont to monitor vital - PT eval, no change on CT head Epigastric/abdominal pain - CT abdomen/pelvis ordered - no acute findings, cont PPI, likely GERD [id number]% - s/p Heart cath 07/05: Normal coronaries, severe dilated nonischemic cardiomyopathy EF 10-15% - cont anti-failure medications, input output monitoring, salt and fluid restriction - cardiology consulted HTN, stable DM type 2, cont metformin and SSI Paroxysmal A. fib with rapid ventricular rate; - Cardiology recommended full dose anticoagulation during prior admission with eliquis - resumed NSVT - order CE and EKG, cont to monitor tele, cont BB - provide DVT Px with eliquis Subjective Date of service: 08/07/19 Interval history: Ptient seen and examined noted 7 run of VTEC on tele, pt asymptomatic, no chest pain Objective - Exam Narrative Exam: GENERAL: well-developed and well-nourished lying on bed appeared to be in no discomfort. HEENT: Normocephalic. Atraumatic. No conjunctival congestion or icterus. Patient has moist mucous membranes. NECK: Supple. Trachea midline. CHEST/LUNGS: Clear to auscultated bilaterally, breathing nonlabored. No wheezes crackles or rhonchi. HEART/CARDIOVASCULAR: Regular in rate and rhythm. S1 and S2 positive. ABDOMEN: Abdomen is soft, nontender. Patient has normal bowel sounds. SKIN: There is no rash. Warm and dry. NEURO: No focal motor deficit. Follows command. MUSCULOSKELETAL: No joint effusion or tenderness. EXTRIMITY: No edema, no cyanosis or clubbing. PSYCH: Cooperative. - Constitutional Vitals: Vital Signs - 12hr 08/07/19 08/07/19 08/07/19 04:17 07:40 09:42 Temperature 98.0 F 98.0 F Pulse Rate 85 87 86 Respiratory 18 22 Rate Blood Pressure 113/38 107/57 110/60 O2 Sat by Pulse 92 91 Oximetry 08/07/19 08/07/19 08/07/19 10:00 11:00 11:25 Temperature 97.9 F Pulse Rate 94 H 88 Respiratory 22 24 Rate Blood Pressure 96/44 O2 Sat by Pulse 93 91 Oximetry - Labs CBC & Chem 7: 08/06/19 05:00 08/06/19 05:00 Labs: Abnormal lab results 08/06/19 08/07/19 08/07/19 Range/Units 18:08 07:48 11:33 POC Glucose 121 H 120 H 218 H (70-105)
[2019-08-08] MEDS: FAMOTIDINE 20 MG/2 ML INJ IV SCH ×2 (04:51→09:39)
[2019-08-08] MEDS: INSULIN REGULAR, HUMAN 100 UNITS/1 ML SUB-Q SCH ×2 (08:00→12:05)
[2019-08-08] MEDS: glipiZIDE 5 MG TAB PO SCH (09:38)
[2019-08-08] MEDS: metFORMIN 500 MG TAB PO SCH (09:38)
[2019-08-08] MEDS: ASPIRIN EC 81 MG TAB PO SCH (09:39)
[2019-08-08] MEDS: NICOTINE 21 MG/24 HR PATCH TD SCH (09:39)
[2019-08-08] MEDS: APIXABAN 5 MG TAB PO SCH (09:39)
[2019-08-08] MEDS: carvediloL 12.5 MG TAB PO SCH (09:41)
[2019-08-08] MEDS: FUROSEMIDE 40 MG TAB PO SCH (09:41)
[2019-08-08] MEDS: SPIRONOLACTONE 25 MG TAB PO SCH (09:41)
[2019-08-08 11:42] VITALS: BP 117/55
[2019-08-08] MEDS: LISINOPRIL 5 MG TAB PO SCH (11:49)
--- NOTE | 2019-08-08 14:37 | Discharge Summary ---
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 HTN, stable DM type 2, cont metformin COPD with chronic respiratory failure - on home O2, cont nebs as needed Paroxysmal A. fib with rapid ventricular rate; - Cardiology recommended full dose anticoagulation during prior admission with eliquis - but patient wanted to get back on coumadin due to cost issue, started on coumadin on discharge NSVT - normal CE and EKG no ST changes, cont BB - provide DVT Px with eliquis Disposition: [id number] HOME [facility] Time spent for discharge: 34 minutes Core Measure Documentation - Palliative Care Palliative Care/ Comfort Measures: Not Applicable - Core Measures Any of the following diagnoses?: heart failure - Heart Failure Discharge Requirements RAFITA/ARB for LVSD if EF <40%: Yes Beta clary at discharge: Yes Exam - Physical Exam Narrative exam: GENERAL: well-developed and well-nourished lying on bed appeared to be in no discomfort. HEENT: Normocephalic. Atraumatic. No conjunctival congestion or icterus. Patient has moist mucous membranes. NECK: Supple. Trachea midline. CHEST/LUNGS: Clear to auscultated bilaterally, breathing nonlabored. No wheezes crackles or rhonchi. HEART/CARDIOVASCULAR: Regular in rate and rhythm. S1 and S2 positive. ABDOMEN: Abdomen is soft, nontender. Patient has normal bowel sounds. SKIN: There is no rash. Warm and dry. NEURO: No focal motor deficit. Follows command. MUSCULOSKELETAL: No joint effusion or tenderness. EXTRIMITY: No edema, no cyanosis or clubbing. PSYCH: Cooperative. - Constitutional Vitals: Temp Pulse Resp BP Pulse Ox 98.4 F 76 18 117/55 93 08/08/19 11:41 08/08/19 11:49 08/08/19 11:42 08/08/19 11:49 08/08/19 11:41 Plan Activity: advance as tolerated Weight Bearing Status: Non-Weight Bearing Diet: low fat, low salt, diabetic Special Instructions: restrict fluid intake to (1.2 L daily), record daily weights, record daily BP diary, record blood sugar diary Additional Instructions: [place] INR in next 5 days at cardiology office and get refill Follow up with: PRIMARY CAREMD [Primary Care Provider] - 3-5 Days IMTIAZ CARRANZA MD [Staff Physician] - 7 Days Prescriptions: Spironolactone [Aldactone] 25 mg PO QDAY #30 tablet carvediloL [Coreg] 12.5 mg PO BID #60 tablet Warfarin Sodium [Coumadin] 5 mg PO DAILY #14 tablet metFORMIN [Glucophage] 1,000 mg PO BIDDIAB #60 tablet glipiZIDE [Glucotrol] 5 mg PO BIDDIAB #60 tablet Nicotine [Habitrol] 21 mg TD DAILY #7 patch Aspirin EC [Halfprin EC] 81 mg PO QDAY #30 tablet Furosemide [Lasix TAB] 40 mg PO DAILY #30 tablet lisinopriL [Zestril TAB] 5 mg PO QDAY #30 tablet
--- NOTE | 2019-08-08 15:34 | Progress Note ---
Assessment and Plan Syncope Acute systolic heart failure s/p to noncompliance with her medications Improved. Hx of Nonischemic cardiomyopathy EF 35-40% by an echo 12/2018 [facility] 06/2018: normal coronaries, EF 10-15% Paroxysmal Afib on telemetry currently in sinus rhythm on eliquis for oral anticoagulation Pulmonary hypertension Hypertension Diabetes Hx of COPD Tobacco abuse Recommendations: Continue medical therapy for nonischemic cardiomyopathy and paroxysmal atrial fibrillation. OK to DC from cardiac perspective She needs consistent outpatient f/u with cardiology Subjective Date of service: 08/08/19 Interval history: No acute events. Pt is feeling better. Objective Vital Signs Temp Pulse Resp BP Pulse Ox 08/08/19 11:49 76 117/55 08/08/19 11:42 18 08/08/19 11:41 98.4 F 76 16 117/55 93 08/08/19 11:00 89 08/08/19 09:42 18 107/41 08/08/19 09:41 88 107/41 08/08/19 09:34 96 08/08/19 08:19 97.9 F 88 16 100/61 92 08/08/19 04:07 97.9 F 80 20 100/35 92 08/08/19 02:59 84 08/08/19 00:03 98.6 F 86 20 131/43 92 08/07/19 21:44 96 H 123/51 08/07/19 21:43 94 08/07/19 20:18 98.0 F 94 H 20 123/51 91 08/07/19 19:17 96 H 08/07/19 16:30 97.8 F 76 22 109/44 91 - Physical Examination HEENT: Positive: PERRL Neck: Positive: neck supple Cardiac: Positive: Reg Rate and Rhythm Lungs: Positive: clear to auscultation Neuro: Positive: Grossly Intact Abdomen: Positive: Soft, Active Bowel Sounds Extremities: Absent: edema
== END 2019-08-08 16:30 | disposition home or self-care (01) | DRG 291 ==
LOC: ED 04:12 → 4A 09:47
PROVIDERS: ADMIT Internal Medicine; ATTEND Internal Medicine
PROC: 4A033R1 Measurement of Arterial Saturation, Peripheral, Percutaneous Approach (ICD-10-PCS; principal; 2019-08-06)
DX: I11.0 Hypertensive heart disease with heart failure (principal); J96.21 Acute and chronic respiratory failure with hypoxia; I50.21 Acute systolic (congestive) heart failure; I47.2 Ventricular tachycardia; E11.9 Type 2 diabetes mellitus without complications; E83.42 Hypomagnesemia; F17.210 Nicotine dependence, cigarettes, uncomplicated; I44.0 Atrioventricular block, first degree; I48.0 Paroxysmal atrial fibrillation; I42.0 Dilated cardiomyopathy; K21.9 Gastro-esophageal reflux disease without esophagitis; R55 Syncope and collapse; Z79.01 Long term (current) use of anticoagulants; Z79.899 Other long term (current) drug therapy; Z79.84 Long term (current) use of oral hypoglycemic drugs; Z90.710 Acquired absence of both cervix and uterus; Z90.49 Acquired absence of other specified parts of digestive tract; Z82.49 Family history of ischemic heart disease and other diseases of the circulatory system; Z98.51 Tubal ligation status
CPT/HCPCS: 36415; 70450; 71045; 74177; 80048; 80320; 81001; 82803; 82962; 83735; 83880; 84439; 84443; 84484; 85025; 85379; 85610; 85730; 93005; 93010; 94760; G0378; G0480; J1940; J3475; Q9967